=== PATIENT | male | born 1950 | race Caucasian/White ===

== ENCOUNTER → 2017-12-19 | Outpatient (CLI) | payer MEDICARE ==
[~2017-12-19] MED LIST: REGADENOSON 0.4 MG/5 ML SYRINGE ONE
== END ==
LOC: CFH 07:54
PROVIDERS: ATTEND Internal Medicine Cardiovascular Disease
DX: I10 Essential (primary) hypertension (principal); I25.10 Atherosclerotic heart disease of native coronary artery without angina pectoris; Z95.1 Presence of aortocoronary bypass graft
CPT/HCPCS: 78452; 93017; A9502; J2785

== ENCOUNTER 2019-01-29 08:44 | Outpatient (CLI) | payer MEDICARE | END 2019-01-29 23:59 | disposition home or self-care (01) | LOC: CFH 08:44 | PROVIDERS: ATTEND Internal Medicine Cardiovascular Disease | DX: I25.9 Chronic ischemic heart disease, unspecified (principal); I10 Essential (primary) hypertension; Z95.1 Presence of aortocoronary bypass graft | CPT/HCPCS: 78452; 93017; A9502; J2785 ==

== ENCOUNTER 2019-02-13 10:49 | Day surgery (SDC) | payer MEDICARE ==
[~2019-02-13] VITALS: Ht 177.8 cm; Wt 75.0 kg
[2019-02-13] MEDS ORDERED: EZET10TA70 PO (11:42)
[2019-02-13] MEDS ORDERED: SPIR25TA5 PO (11:42)
[2019-02-13] MEDS ORDERED: OMEP-110 PO (11:42)
[2019-02-13] MEDS ORDERED: ASPI-496 PO (11:42)
[2019-02-13] MEDS ORDERED: LOSA25TA25 PO (11:42)
[2019-02-13] MEDS ORDERED: METH4TAB7 PO (11:42)
[2019-02-13] MEDS ORDERED: METO25TA91 PO (11:42)
[2019-02-13] MEDS ORDERED: ATOR20TA37 PO (11:42)
[2019-02-13] MEDS ORDERED: AMLO-150 PO (11:42)
[2019-02-13] MEDS ORDERED: CHOL100011 PO (11:42)
[2019-02-13 11:47] VITALS: BP 161/99
[2019-02-13] MEDS ORDERED: INFL100V IV (12:07)
[2019-02-13] MEDS ORDERED: LIDOCAINE-MPF 1%, 5ML ONE (12:48)
[2019-02-13] MEDS ORDERED: HEPARIN 1,000 UNITS/ML, 10ML ONE (12:48)
[2019-02-13] MEDS ORDERED: VERAPAMIL 2.5 MG/ML, 2ML ONE (12:48)
[2019-02-13] MEDS ORDERED: FENTANYL PF 100 MCG/2ML ONE (12:48)
[2019-02-13] MEDS ORDERED: MIDAZOLAM 1 MG/ML, 2ML ONE (12:48)
[2019-02-13] MEDS ORDERED: SODIUM CHLORIDE 0.9% 1,000 ML IV SCH (13:37)
== END 2019-02-13 15:14 | disposition home or self-care (01) ==
LOC: CACL 10:49
PROVIDERS: ATTEND Internal Medicine Cardiovascular Disease
DX: I25.119 Atherosclerotic heart disease of native coronary artery with unspecified angina pectoris (principal); I10 Essential (primary) hypertension; M06.9 Rheumatoid arthritis, unspecified; E78.00 Pure hypercholesterolemia, unspecified; Z72.89 Other problems related to lifestyle; Z79.82 Long term (current) use of aspirin; Z79.899 Other long term (current) drug therapy; Z87.891 Personal history of nicotine dependence; Z88.2 Allergy status to sulfonamides; Z88.8 Allergy status to other drugs, medicaments and biological substances; Z95.1 Presence of aortocoronary bypass graft
CPT/HCPCS: 93459; 99156; 99157; C1769; C1894; J1644; J2250; J3010; Q9967

== ENCOUNTER → 2020-02-17 | Outpatient (CLI) | payer MEDICARE ==
[~2020-02-17] MED LIST changes: +AMLO-150 PO; +ASPI-496 PO; +ATOR20TA37 PO; +CHOL100011 PO; +EZET10TA70 PO; +INFL100V IV; +LOSA25TA25 PO; +METH4TAB7 PO; +METO25TA91 PO; +OMEP-110 PO; +SPIR25TA5 PO
== END | disposition home or self-care (01) ==
LOC: CFH 07:38
PROVIDERS: ATTEND Internal Medicine Cardiovascular Disease
DX: I25.89 Other forms of chronic ischemic heart disease (principal); I10 Essential (primary) hypertension; M05.40 Rheumatoid myopathy with rheumatoid arthritis of unspecified site
CPT/HCPCS: 78452; 93017; A9502; J2785